=== PATIENT | male | born 1950 | race Caucasian/White ===

== ENCOUNTER → 2022-06-16 | Outpatient (CLI) | payer MEDICARE, SELFPAY | END | disposition home or self-care (01) | LOC: LAB 15:45 | PROVIDERS: PCP Family Medicine; Referring Provider Urology; Visit Provider Urology | DX: R97.20 Elevated prostate specific antigen [PSA] (principal) | CPT/HCPCS: 36415; 84153 ==

== ENCOUNTER → 2022-07-05 | Outpatient (CLI) | payer MEDICARE, SELFPAY ==
--- NOTE | 2022-07-05 | PROSBIL_PTH ---
PATIENT: RHIANNON PATEL LOC: [facility] U#:[id number] AGE/SX: 71/M ROOM: RE07/05/[address]: Dr. West Nelson MD : 03/02/1951 BED: DIS: 07/05/2022 SPEC #: [id number] RECD: 07/05/22 15:11 STATUS: MANPREET VIOLETTA #: [id number] HEMANTH: 07/05/22 00:[address]: West Nelson DEPT: SURGICAL PATHOLOGY RECD BY: Riky Hacktet ENTERED: 07/06/22 07:39 SP TYPE: PROST BX LISSETT DR: Dr. Wilfrido Marquez MD Tissues: A - PROSTATE RIGHT B - PROSTATE RIGHT C - PROSTATE RIGHT D - PROSTATE LEFT E - PROSTATE LEFT F - PROSTATE LEFT Procedures: PROSTATE BX HEADER OPERATION: Prostate biopsy PRE-OP DIAGNOSIS: Elevated PSA TISSUE SUBMITTED: A - Right apex, B - Right mid, C - Right base, D - Left apex, E - Left mid, F - Left base MICROSCOPIC DIAGNOSIS A. Right prostate, apex, core biopsy: Prostatic adenocarcinoma. Kwesi grade: 3+3=6 Number of cores involved: 1/1 Proportion of tissue involved: >99% Perineural invasion: Not identified. Greatest tumor length: 0.9 cm B. Right prostate, mid, core biopsy: Prostatic adenocarcinoma. Paul Smiths grade: 3+3=6 Number of cores involved: 1/1 Proportion of tissue involved: >99% Perineural invasion: Not identified. Greatest tumor length: 0.9 cm Chronic inflammation. See comment. C. Right prostate, base, core biopsy: Prostatic adenocarcinoma. Kwesi grade: 3+3=6 Number of cores involved: 1/1 Proportion of tissue involved: >95% Perineural invasion: Not identified. Greatest tumor length: 1.0 cm D. Left prostate, apex, core biopsy: Prostatic adenocarcinoma. Kwesi grade: 3+3=6 Number of cores involved: 1/1 Proportion of tissue involved: ~60% Perineural invasion: Not identified. Greatest tumor length: 0.5 cm See comment. E. Left prostate, mid, core biopsy: Prostatic adenocarcinoma. Paul Smiths grade: 3+3=6 Number of cores involved: 1/1 Proportion of tissue involved: ~50% Perineural invasion: Not identified. Greatest tumor length: See comment. See comment. F. Left prostate, base, core biopsy: Prostatic adenocarcinoma. Kwesi grade: 3+3=6 Number of cores involved: 1/1 Proportion of tissue involved: ~5-10% Perineural invasion: Not identified. Greatest tumor length: 0.7 cm, discontinuous Focal high-grade prostatic intraepithelial neoplasia (HGPIN). Focal chronic inflammation. See comment. SJ:alma delia 07/07/2022 COMMENT B. Chronic inflammation is also noted adjacent to the nerve. E. The specimen was fragmented during processing, tumor length cannot be measured. The tumor is present in discontinuous fashion. D-F. Immunohistochemistry ([id number]) supports the above diagnosis. Case has been reviewed in consultation with Dr. Valladares who concurs with the above diagnosis. IDC:[email or web address] MICROSCOPIC DESCRIPTION Slides are reviewed. GROSS DESCRIPTION A - Received is one container designated prostate, right apex. The specimen consists of one elongated fragment of light kaur-white soft tissue measuring 1.0 cm in length and 0.1 cm in diameter. The specimen is totally submitted in one cassette. B - Received is one container designated prostate, right mid. The specimen consists of one elongated fragment of light kaur-white soft tissue measuring 1.0 cm in length and 0.1 cm in diameter. The specimen is totally submitted in one cassette. C - Received is one container designated prostate, right base. The specimen consists of one elongated fragment of light kaur-white soft tissue measuring 1.1 cm in length and 0.1 cm in diameter. The specimen is totally submitted in one cassette. D - Received is one container designated prostate, left apex. The specimen consists of one elongated fragment of light kaur-white soft tissue measuring 0.7 cm in length and 0.1 cm in diameter. The specimen is totally submitted in one cassette. E - Received is one container designated prostate, left mid. The specimen consists of one elongated fragment of light kaur-white soft tissue measuring 1.1 cm in length and 0.1 cm in diameter. The specimen is totally submitted in one cassette. F - Received is one container designated prostate, left base. The specimen consists of one elongated fragment of light kaur-white soft tissue measuring 1.0 cm in length and 0.1 cm in diameter. The specimen is totally submitted in one cassette. / SJ:rg 07/06/2022 TC:0 CPT: G0146 ADDENDUM ADDENDUM ADDENDUM ADDENDUM ADDENDUM ADDENDUM ADDENDUM ADDENDUM ADDENDUM ADDENDUM ADDENDUM ADDENDUM ADDENDUM ADDENDUM ADDENDUM ADDENDUM ADDENDUM ADDENDUM ADDENDUM ADDENDUM ADDENDUM ADDENDUM ADDENDUM ADDENDUM ADDENDUM ADDENDUM ADDENDUM ADDENDUM 09/09/2022 10:51 ADDENDUM 09/09/2022 10:51 ADDENDUM 09/09/2022 10:51 ADDENDUM 09/09/2022 10:51 ADDENDUM 09/09/2022 10:51 This addendum is added to incorporate an outside pathology consultation report. The case was examined at [facility] (#[id number]) and the following diagnosis was rendered. A. Right prostate, apex, core biopsy: Prostatic adenocarcinoma, Kwesi score 3+3=6, involving 1 of 1 core and 90% of the tissue. B. Right prostate, mid, core biopsy: Prostatic adenocarcinoma, Kwesi score 3+4=7, involving 1 of 1 core and 90% of the tissue. Kwesi pattern 4 is 5% of the tumor. C. Right prostate, base, core biopsy: Prostatic adenocarcinoma, Kwesi score 3+4=7, involving 1 of 1 core and 90% of the tissue. Kwesi pattern 4 is 15% of the tumor. D. Left prostate, apex, core biopsy: Prostatic adenocarcinoma, Kwesi score 3+3=6, involving 1 of 1 core and 60% of the tissue. E. Left prostate, mid, core biopsy: Prostatic adenocarcinoma, Kwesi score 3+3=6, involving 1 of 1 core and 50% of the tissue. F. Left prostate, base, core biopsy: Prostatic adenocarcinoma, Paul Smiths score 3+3=6, involving 1 of 1 core and 10% of the tissue. Please see complete above mentioned consultation report in EMR
--- NOTE | 2022-07-05 | IMM_PTH ---
PATIENT: RHIANNON PATEL LOC: [facility] U#:[id number] AGE/SX: 71/M ROOM: RE07/05/[address]: Dr. West Nelson MD : 03/02/1951 BED: DIS: 07/05/2022 SPEC #: [id number] RECD: 07/07/22 13:42 STATUS: MANPREET REQ #: [id number] HEMANTH: 07/05/22 00:[address]: West Nelson DEPT: IMMUNOHISTOCHEMISTRY RECD BY: Delisa Shields ENTERED: 07/07/22 13:44 SP TYPE: IMMUNO OTHR DR: Dr. Wilfrido Marquez MD Tissues: D - PROSTATE LEFT E - PROSTATE LEFT F - PROSTATE LEFT Procedures: 34BE12 (add) P40 (add) 34BE12 (initial) PHYSICIAN & INSTITUTION [place] [id number] SPECIMEN INFORMATION: Tissue Source: D - Left prostate, apex, E - Left prostate, mid, F - Left prostate, base Clinical Info: Elevated PSA Specimen Number: [id number] D-F CPT code: 93173, 32954 x5 METHODOLOGY: Deparaffinized sections of prefer/formalin-fixed tissue or PAP/DQ stained slides are incubated with monoclonal/polyclonal antibodies/oligonucleotide probes. Localization is made via biotin free immunoperoxidase method. Appropriate controls are performed and reacted as expected. Results on target cell population are indicated in the following table: RESULTS: ANTIBODY / CLONE RESULT Block D P40 (BC28) negative 34BE12 (34BE12) negative Block E P40 (BC28) negative 34BE12 (34BE12) negative Block F P40 (BC28) negative 34BE12 (34BE12) negative These tests were developed and their performance characteristics determined by [facility]. They may not have been cleared or approved by the U.S. Food and Drug Administration. The FDA has determined that such clearance or approval is not necessary. The above immunohistochemical/dualISH markers are ordered and reviewed by the Pathologist. INTERPRETATION: D. Left prostate, apex, core biopsy: Adenocarcinoma. E. Left prostate, mid, core biopsy: Adenocarcinoma. F. Left prostate, base, core biopsy: Adenocarcinoma. SJ:alma delia 07/08/2022
== END | disposition home or self-care (01) ==
PROVIDERS: PCP Family Medicine; Referring Provider Urology; Visit Provider Urology
DX: C61 Malignant neoplasm of prostate (principal)
CPT/HCPCS: 88305; 88341; 88342; G0416

== ENCOUNTER → 2022-08-02 | Outpatient (CLI) | payer MEDICARE, SELFPAY ==
--- NOTE | 2022-08-02 07:19 | NM_ITS ---
CLINICAL: 71-year-old male with history of carcinoma of the prostate. WHOLE BODY 99m Tc MDP RADIONUCLIDE BONE SCINTIGRAPHY COMPARISON: CT of the abdomen-pelvis report 08/02/2022 FINDINGS: Following the intravenous administration of 27.5 mCi of 99m Tc MDP, whole body bone images reveal: 1. Facilitated uptake is noted in the glenohumeral, sternoclavicular and acromioclavicular compartments of both shoulders, the patellofemoral and medial tibial compartments of both knees, the anterior midline tibial compartment of the left knee, midline sacrum. 2. Increased radiopharmaceutical is defined in the right hip, proximal femur. 3. The remaining skeletal structures are scintigraphically unremarkable with normal-appearing renal images and urinary bladder activity identified. There is enhanced uptake visualized in the left proximal femur-intertrochanteric region commensurate with periostitis and/or trochanteric bursitis. NM/Bone Scan Whole Body IMPRESSION: 1. The increase in tracer uptake noted in the right proximal femur may represent trauma-fracture and/or a component of osteonecrosis, severe degenerative changes. Plain film radiography correlation is recommended. 2. Degenerative arthritis is defined in the bilateral shoulders, both knees, midline sacrum. 3. There is no definitive scintigraphic evidence of diffuse axial skeletal metastatic disease on the current examination. Electronically Signed: Trell Valdivia, at 22:35 EDT ,
--- NOTE | 2022-08-02 08:43 | CT_ITS ---
STUDY: CT ABDOMEN AND PELVIS WITH CONTRAST REASON FOR EXAM: Male, 71 years old. Elevated PSA. Question prostate cancer. RADIATION DOSAGE (If Supplied By Facility): CTDIvol = ( 18.44 ) mGy, DLP = ( 1320.52 ) mGycm TECHNIQUE: IV 100mL Isovue-370 was administered. Transaxial images were obtained from the dome of the diaphragm to the symphysis pubis. Multiplanar coronal and sagittal images were reformatted. Individualized Dose Optimization Techniques Were Used For This CT. COMPARISON: FINDINGS: The visualized lung bases are unremarkable. There is a small left Bochdalek''s hernia of retroperitoneal fat. The visualized portions of the heart are within normal limits. Coronary artery calcifications are noted. Normal liver. Calcified gallstones noted in the neck of the gallbladder. No wall thickening or inflammatory change. No extrahepatic biliary ductal dilatation. Normal spleen. Normal pancreas. Normal bilateral adrenal glands. Normal visualized stomach. Normal small intestine. Normal colon. The appendix is visualized and appears normal. There is diffuse atherosclerotic calcification of the abdominal aorta, without a demonstrated aneurysm. Normal IVC No retroperitoneal adenopathy. There is mild bilateral pelvocaliectasis versus parapelvic cysts. Normal bilateral ureters. Urinary bladder is collapsed. There is no evidence of mass or wall thickening. The prostate appears normal in size with central calcifications. Normal seminal vesicles. There are phleboliths in the pelvis without lymphadenopathy. No free air or free fluid is seen within the peritoneal cavity. There are supraumbilical midline ventral hernias of omental fat. A small umbilical hernia of omental fat in bilateral inguinal hernias of omental fat . Mild degenerative changes of the lumbar spine. No lytic or blastic lesions are noted. CT/Abdomen/Pelvis W IV Cont ONLY IMPRESSION: 1. Normal size prostate without evidence of local extension or metastatic disease to suggest prostate cancer. 2. Question bilateral pelvocaliectasis versus parapelvic cysts. There is no ureteral dilatation. 3. Multiple ventral and inguinal hernias of omental fat. 4. Degenerative changes of the lumbar spine. Electronically Signed: Santiago Yune DO at 18:42 EDT ,
[2022-08-02 09:32] LABS: CREATININE FINGERSTICK < 0.9 mg/dL (0.70-1.30); EGFR FINGERSTICK > 60.0000 mL/min (>60)
== END | disposition home or self-care (01) ==
LOC: CT 07:12 → NM 07:15
PROVIDERS: PCP Family Medicine; Referring Provider Urology; Visit Provider Urology
DX: C61 Malignant neoplasm of prostate (principal); R97.20 Elevated prostate specific antigen [PSA]
CPT/HCPCS: 74177; 78306; A9503; Q9967